=== PATIENT | female | born 1970 | race Asian ===

== ENCOUNTER 2019-09-04 10:01 | Outpatient (CLI) | payer OTHER | END 2019-09-04 21:06 | disposition home or self-care (01) | LOC: SMA 10:01 | DX: Z12.31 Encounter for screening mammogram for malignant neoplasm of breast (principal); R39.15 Urgency of urination; R33.9 Retention of urine, unspecified | CPT/HCPCS: 76830-TC; 76857; 77067 ==

== ENCOUNTER 2020-05-05 08:51 | Outpatient (CLI) | payer OTHER | END 2020-05-05 20:48 | disposition home or self-care (01) | LOC: SUS 08:51 | DX: N20.0 Calculus of kidney (principal); N27.0 Small kidney, unilateral | CPT/HCPCS: 76700-TC ==